=== PATIENT | female | born 2000 | race Caucasian/White ===

== ENCOUNTER 2019-01-03 15:52 | Emergency (ER) | payer BC ==
[~2019-01-03] VITALS: Ht 170.2 cm; Wt 62.7 kg
[2019-01-03 16:15] VITALS: TEMP 98.9
[2019-01-03] MEDS ORDERED: ZOFRAN 4MG T4 MG/TAB PO (18:20)
[2019-01-03 18:33] VITALS: BP 137/54; PULSE 75
== END 2019-01-03 18:33 | disposition home or self-care (01) ==
LOC: COL.ER 15:52
DX: S06.0X0A Concussion without loss of consciousness, initial encounter (principal); W01.198A Fall on same level from slipping, tripping and stumbling with subsequent striking against other object, initial encounter; Y92.410 Unspecified street and highway as the place of occurrence of the external cause